=== PATIENT | female | born 1995 | race Caucasian/White ===

== ENCOUNTER 2021-02-03 05:50 | Inpatient (IN) | payer OTHER, SELFPAY ==
[2021-02-03] VITALS (98 sets, daily range): BP systolic 92–135; BP diastolic 34–77; PULSE 67–141; RESP 16; TEMP 36.6–37.2; O2SAT 96–100; BMI 35.1
--- NOTE | 2021-02-03 05:41 | PM.IMHP ---
H&P: HPI History of Present Illness Date/Time: 02/03/21 05:41 26-year-old woman whose last menstrual period was 04/08/2020, EDC is 02/10/2021, presents at 39 weeks gestation for induction of labor. is uncomplicated. Early ultrasound confirmed dates Chief Complaint: iol Review of Systems Review of Systems: All systems reviewed & are unremarkable except as noted in HPI and below PMFSH Family History Family History Father Mitral valve prolapse Mother Arthritis, rheumatoid Social History Social History Substance use: never Spiritual care concerns: No Meds Home Medications and Allergies Home Medications Medication Instructions Recorded Confirmed Type prenat.vits,fernanda,cyo-[id number]-[id number] 1 tablet PO DAILY 01/15/21 01/15/21 History [ #2] sertraline 100 mg PO DAILY 01/15/21 01/15/21 History Allergies Allergy/AdvReac Type Severity Reaction Status Date / Time No Known Allergies Allergy Verified 01/15/21 12:39 Exam Const: General: no acute distress Eyes: General: appearance normal, both eyes and all related structures Neck: Neck: supple and no JVD Thyroid: thyroid normal Resp: Effort & Inspection: normal respiratory effort Auscultation: clear to auscultation bilaterally Cardio: Rate: regular rate Rhythm: regular rhythm GI: Inspection: non-distended GI Palp: Yes Soft to palpation, No Tenderness to palpation present (GI) and No Guarding due to palpation present (GI) Auscultation: normal bowel sounds : External Female Exam: normal external appearance Speculum Exam - Vagina: normal appearance of the vagina Speculum Exam - Cervix: Cervical os closed ( cervix 2.5) Skin: General skin exam: no rashes or lesions noted Extrem: General: normal to inspection and no edema Psych: Mental Status: mental status grossly normal Affect: normal affect Assessment and Plan Additional Plan impression: Term with favorable cervix Plan: Medical induction of labor. Spontaneous vaginal delivery is expected. She is an epidural candidate
[2021-02-03 06:37] LABS: Basophils Percent Auto 0.3 % (0.2-1.2); Eosinophils Absolute Auto 0.1 K/mm3 (0-0.3); Hematocrit 25.8 % (37.0-47.0); Hemoglobin 7.9 g/dL (12.0-15.0); Immature Granulocyte Absolute 0.29 K/mm3 (0.00-0.031); Immature Granulocyte Percent A 2.2 % (0-0.5); Lymphocytes Absolute Auto 1.88 K/mm3 (0.9-3.2); Mean Corpuscular HGB Conc 30.6 g/dl (32-36); Mean Corpuscular Hemoglobin 23.7 pg (26-34); Mean Corpuscular Volume 77.5 fl (80-100); Monocytes Absolute Auto 0.8 K/mm3 (0.1-0.6); Monocytes Percent Auto 6.3 % (2.6-8.5); Neutrophils Absolute Auto 10.2 K/mm3 (1.3-6.7); Neutrophils Percent Auto 76.2 % (45.5-73.1); Platelet Count Result 195 k/mm3 (150-375); Red Blood Count 3.33 M/mm3 (4.2-5.4); Red Cell Distribution Width 16.4 % (11.5-14.5); White Blood Count 13.4 K/mm3 (4.5-10.0)
[2021-02-03] MEDS: LACTATED RINGERS 1,000 ML 125 ML IV CONT ×2 (06:39→09:00)
[2021-02-03] MEDS: AMPICILLIN 2 GM/NS 100 ML 2 GM/100 ML BAG IVPB (06:40)
[2021-02-03] MEDS: OXYTOCIN 30 UNITS/NS 500 ML 30 UNITS/500 ML BAG IV CONT (06:40)
--- NOTE | 2021-02-03 06:42 | LDADM ---
This patient, Karon Bray, was admitted to Labor/Delivery/Recovery 103 on 02/03/21 at 05:50. Plans for labor, pain management and were discussed with patient. Patient/family oriented to hospital policies and general routines including ID bracelet, bed and alarms, visiting hours, pain management, procedures, bathroom and other care routines, personal items, smoking policy, room service/diet and guest tray routines, security routines, and visiting hours. Patient/Family are encouraged to report perceived risks to care and to ask questions if they do not understand what they are told or what they should do. See OBIX for further documentation.
--- NOTE | 2021-02-03 07:11 | WPDANESEPP ---
Anes - Eval Pre Procedure Procedure: labor epidural Date/Time: 02/03/21 07:11 Preop Diagnosis: labor pain Pre Op Diagnosis: IOL Patient Data Age: 26 Gender: F Height: 5 ft 3 in Weight: 90 kg Last Vital Signs Pulse 99 02/03/21 06:45 BP 120/74 02/03/21 06:45 Allergies Allergy/AdvReac Type Severity Reaction Status Date / Time No Known Allergies Allergy Verified 01/15/21 12:39 Home Medications Medication Instructions Recorded Confirmed Type prenat.vits,fernanda,tnx-pvsg-[id number] 1 tablet PO DAILY 01/15/21 02/03/21 History [ #2] sertraline 100 mg PO DAILY 01/15/21 02/03/21 History Laboratory Tests 02/03/21 02/03/21 06:17 06:17 WBC 13.4 K/mm3 H K/mm3 (4.5-10.0) RBC 3.33 M/mm3 L M/mm3 (4.2-5.4) Hgb 7.9 g/dL L g/dL (12.0-15.0) Hct 25.8 % L % (37.0-47.0) MCV 77.5 fl L fl (80-100) MCH 23.7 pg L pg (26-34) MCHC 30.6 g/dl L g/dl (32-36) RDW 16.4 % H % (11.5-14.5) Plt Count 195 k/mm3 k/mm3 (150-375) MPV 10.0 fl fl (7.4-10.4) Immature Gran % (Auto) 2.2 % H % (0-0.5) Neut % (Auto) 76.2 % H % (45.5-73.1) Lymph % (Auto) 14.0 % L % (18.3-44.2) [place] % (Auto) 6.3 % % (2.6-8.5) Eos % (Auto) 1.0 % % (0-4.4) Baso % (Auto) 0.3 % % (0.2-1.2) Lymph # (Auto) 1.88 K/mm3 K/mm3 (0.9-3.2) [place] # (Auto) 0.8 K/mm3 H K/mm3 (0.1-0.6) Eos # (Auto) 0.1 K/mm3 K/mm3 (0-0.3) Baso # (Auto) 0.0 K/mm3 K/mm3 (0.0-0.1) Abs Immat Gran (auto) 0.29 K/mm3 H K/mm3 (0.00-0.031) Absolute Neuts (auto) 10.2 K/mm3 H K/mm3 (1.3-6.7) Absolute Nucleated RBC 0.0 K/mm3 K/mm3 (0.0-0.012) Nucleated RBC % 0.0 % % (0.0-0.2) RPR Pending Patient hx anesthesia problems: none Family hx anesthesia problems: none [facility], [facility] Family History Family History Father Mitral valve prolapse Mother Arthritis, rheumatoid Social History Social History Smoking status: Never smoker Substance use: never Spiritual care concerns: No Exam Day of Procedure 02/03/21 07:11
[2021-02-03] MEDS: AMPICILLIN 1 GM/NS 50 ML 1 GM/50 ML BAG IVPB (10:46)
--- NOTE | 2021-02-03 11:13 | PM.OBPNVD ---
OB - PN: Subj Subjective Date/time seen: 02/03/21 11:13 cx 4 by rn exam iupc/epidural in mec present/fhts ok OB - PN: Obj Data Labs CBC & Chem 7: 02/03/21 06:17 Labs: Laboratory Results - last 24 hr 02/03/21 02/03/21 06:17 06:17 WBC 13.4 H RBC 3.33 L Hgb 7.9 L Hct 25.8 L MCV 77.5 L MCH 23.7 L MCHC 30.6 L RDW 16.4 H Plt Count 195 MPV 10.0 Immature Gran % (Auto) 2.2 H Neut % (Auto) 76.2 H Lymph % (Auto) 14.0 L [place] % (Auto) 6.3 Eos % (Auto) 1.0 Baso % (Auto) 0.3 Lymph # (Auto) 1.88 [place] # (Auto) 0.8 H Eos # (Auto) 0.1 Baso # (Auto) 0.0 Abs Immat Gran (auto) 0.29 H Absolute Neuts (auto) 10.2 H Absolute Nucleated RBC 0.0 Nucleated RBC % 0.0 Blood Type O Positive Antibody Screen Negative OB - PN A/P Time Spent With Patient Time: Total time spent is greater than 50% in coordination of care (as documented) at patient's floor/unit and/or counseling patient:
[2021-02-03 12:01] LABS: Rapid Plasma Reagin Non-Reactive (NonReactive)
--- NOTE | 2021-02-03 14:54 | PM.OBPRVD ---
OB - Delivery Note Procedure Delivery date: 02/03/21 Induction method: AROM Delivery augmentation: pitocin Delivery monitor: external FHT Route of delivery: Episiotomy description: None Laceration Description: None Specimen: No Quantitative Blood Loss (ml): 58 Anesthesia type: Epidural Disposition: floor [place] Baby Date of : 02/03/21 Time of : 14:48 Weeks of gestation at delivery: 39 gender: Female presentation: vertex position: Right Occiput Anterior Placenta delivery description: Spontaneous cord vessel description: 3 Vessels and Nuchal Cord score one minute: 7 score five minutes: 9
[2021-02-03] MEDS: OXYTOCIN 30 UNITS/NS 500 ML 30 UNITS/500 ML BAG 125 UNITS IV CONT (15:18)
[2021-02-03] MEDS: ACETAMINOPHEN 325 MG TABLET 650 MG PO (15:29)
[2021-02-03] MEDS: BENZOCAINE 20% AER SPR (*SP) 56 GM CAN 1 SPRAY TOPICAL (15:29)
[2021-02-03] MEDS: WITCH HAZEL 40 PADS 1 PAD TOPICAL (15:29)
--- NOTE | 2021-02-03 18:54 | OBPPTRN ---
[id number] Patient transferred to post room #278 via W/C. Support person present. Oriented to unit, room, information board, rooming in, admission packet and security measures. Patient verbalizes understanding.
[2021-02-03] MEDS: IBUPROFEN 600 MG TABLET PO (20:31)
[2021-02-04 04:00] VITALS: BP 105/67; PULSE 68; RESP 16; TEMP 36.8
[2021-02-04 05:38] LABS: Hematocrit 23.9 % (37.0-47.0); Hemoglobin 7.3 g/dL (12.0-15.0)
--- NOTE | 2021-02-04 06:43 | PC.NURSE ---
1700 dose of FeSo4 not given by RN on 02/03/21
--- NOTE | 2021-02-04 07:40 | WPDANLDPN2 ---
Anes-Prog Note L&D Date/Time: 02/04/21 07:40 Comfortable throughout: labor and delivery Neuraxial method: epidural Epidural/Spinal procedure site: clean & non-tender Neuro status: Neuro function grossly intact. Cardiovascular status: normal Respiratory status: normal Airway patency: baseline Mental status: baseline Post-Op hydration status: normal Vital Signs: Last Vital Signs Temp 36.8 C 02/04/21 04:00 Pulse 68 02/04/21 04:00 Resp 16 02/04/21 04:00 BP 105/67 02/04/21 04:00 Pulse Ox 100 02/03/21 22:45 Pain score (VAS): 3 I/O: Intake & Output 02/03/21 02/03/21 02/04/21 15:59 23:59 07:59 Intake Total 2550 Output Total 65 Balance 2550 -65 Post-procedural complaints: none Patient feedback: Patient satisfied with anesthetic care.
--- NOTE | 2021-02-04 07:42 | P.DS_ITS ---
DS: Admitting Diagnosis Admitting Diagnosis Admitting Diagnosis: term iup/gbs DS: Summary Hospital Course Hospital Course: The patient was admitted for induction of labor. She was treated for group B strep prophylaxis. Her hospital course was unremarkable following spontaneous vaginal delivery. She was voiding without difficulty, passing gas, ambulating, and generally without Time Spent with Patient Time attestation: Total time spent providing and/or coordinating discharge services: Exam Const: General: no acute distress Eyes: General: appearance normal, both eyes and all related structures Neck: Neck: supple and no JVD Thyroid: thyroid normal Resp: Effort & Inspection: normal respiratory effort Auscultation: clear to auscultation bilaterally Cardio: Rate: regular rate Rhythm: regular rhythm GI: Inspection: non-distended GI Palp: Yes Soft to palpation, No Tenderness to palpation present (GI) and No Guarding due to palpation present (GI) Auscultation: normal bowel sounds : General: Yes bladder normal to palpation External Female Exam: normal external appearance Speculum Exam - Vagina: normal vaginal discharge and No vaginal bleeding Speculum Exam - Cervix: nontender Bimanual exam- vagina & uterus: bladder normal to palpation and No Cervical tenderness present OB/external & speculum: No vaginal bleeding Skin: General skin exam: no rashes or lesions noted Extrem: General: normal to inspection and no edema Psych: Mental Status: mental status grossly normal Affect: normal affect DS: Data Data Completed and Pending Labs on day of discharge: Labs from last 24 hours 02/04/21 02/03/21 02/03/21 04:41 06:17 06:17 Hgb 7.3 L Hct 23.9 L RPR Non-reactive Blood Type O Positive Antibody Screen Negative Discharge Plan Discharge Attending physician on discharge: Herman Farrell Discharging Clinician: Herman Farrell Patient Disposition: Home, Self-Care Activity: may shower, no straining and pelvic rest Diet: heart healthy Patient Instructions: Antibiotic Form Stand Alone Forms: General Discharge Information Follow-up/Referrals: Herman Farrell MD [Physician] - Discharge Medications: Continued sertraline 100 mg Tablet 100 mg PO DAILY RF: 0 #2 Tablet 1 tablet PO DAILY RF: 0 Date of admission: 02/03/21 05:50 Primary Care Provider: PHYSICIAN,DIRECTOR OF SCIENTIFIC RESEARCH Admitting Provider: Herman Farrell Attending physician on admission: Herman Farrell Condition: Stable
--- NOTE | 2021-02-04 07:42 | P.PNOB_ITS ---
OB - PN: Subj Subjective Date/time seen: 02/04/21 07:42 Patient comments: no complaints and pain well controlled baby status: doing well and nursing well OB - PN: Obj Data Labs CBC & Chem 7: 02/04/21 04:41 Labs: Laboratory Results - last 24 hr 02/03/21 02/03/21 02/04/21 06:17 06:17 04:41 Hgb 7.3 L Hct 23.9 L RPR Non-reactive Blood Type O Positive Antibody Screen Negative OB - PN A/P Plan day: 1 Plan: routine care, discharge home and follow up 6 weeks Time Spent With Patient Time: Total time spent is greater than 50% in coordination of care (as doc umented) at patient's floor/unit and/or counseling patient: Time with patient: less than 15 minutes Review of Systems Review of Systems: All systems reviewed & are unremarkable except as noted in HPI and below Exam Const: General: no acute distress Eyes: General: appearance normal, both eyes and all related structures Neck: Neck: supple and no JVD Thyroid: thyroid normal Resp: Effort & Inspection: normal respiratory effort Auscultation: clear to auscultation bilaterally Cardio: Rate: regular rate Rhythm: regular rhythm GI: Inspection: non-distended GI Palp: Yes Soft to palpation, No Tenderness to palpation present (GI) and No Guarding due to palpation present (GI) Auscultation: normal bowel sounds : General: Yes bladder normal to palpation External Female Exam: normal external appearance Speculum Exam - Vagina: normal vaginal discharge and No vaginal bleeding Speculum Exam - Cervix: nontender Bimanual exam- vagina & uterus: bladder normal to palpation and No Cervical tenderness present OB/external & speculum: No vaginal bleeding Skin: General skin exam: no rashes or lesions noted Extrem: General: normal to inspection and no edema Psych: Mental Status: mental status grossly normal Affect: normal affect
[2021-02-04 08:10] VITALS: BP 123/78; PULSE 75; RESP 16; TEMP 36.5; O2SAT 100
[2021-02-04] MEDS: DOCUSATE SODIUM 100 MG CAPSULE PO (09:26)
[2021-02-04] MEDS: POLYSACCHARIDE IRON COMPLEX 150 MG CAPSULE PO (09:26)
[2021-02-04] MEDS: IBUPROFEN 600 MG TABLET PO (09:27)
[2021-02-04] MEDS: MULTIVIT/MIN/PREN/FOL AC/IRON TABLET 1 TAB PO (09:27)
[2021-02-04 12:01] VITALS: BP 115/63; PULSE 80; RESP 17; TEMP 36.6; O2SAT 95
[2021-02-04] MEDS: ACETAMINOPHEN 325 MG TABLET 650 MG PO (15:01)
--- NOTE | 2021-02-04 16:05 | PC.NURSE ---
Patient instructed on viewing the discharge video Mother & Baby Care, The First Two Weeks . Patient was given the opportunity and encouraged to ask questions. Patient verbalized understanding of information shared and has been given the mother/baby guide for home reference.
[2021-02-05 09:38] VITALS: BP 127/87; PULSE 88; RESP 20; TEMP 36.6; O2SAT 100
== END 2021-02-04 16:30 | disposition home or self-care (01) | DRG 807 ==
LOC: ANHLDR 05:57 → ANHOB2 17:29
PROVIDERS: Admitting Provider Obstetrics & Gynecology; Visit Provider Obstetrics & Gynecology
DX: O99.824 Streptococcus B carrier state complicating childbirth (principal); Z37.0 Single live birth; Z3A.39 39 weeks gestation of pregnancy; O69.81X0 Labor and delivery complicated by cord around neck, without compression, not applicable or unspecified
CPT/HCPCS: 36415; 85014; 85018; 85025; 86592; 86850; 86900; 86901; A9270; J0290; J2590; J2795; J7120

== ENCOUNTER 2023-03-10 09:39 | Emergency (ER) | payer BC, SELFPAY ==
[2023-03-10 09:51] VITALS: BP 119/69; PULSE 94; RESP 16; TEMP 36.7; O2SAT 98
--- NOTE | 2023-03-10 11:33 | ED.ANIMALBIT ---
HPI - Animal Bite General Chief Complaint: Animal Bite Stated Complaint: spider bites Time Seen by Provider: 03/10/23 10:44 Source: patient Mode of arrival: ambulatory Limitations: no limitations History of Present Illness HPI narrative: This is a 28-year-old female who presents to the ED with chief complaint of a spider bite occurring last night. Patient states that she had a bite to the lower lip and right lateral thigh. Patient states there is pain in the thigh and minimal pain in the lip. Reports a burning and tingling in the right thigh. Denies fevers, chills, nausea, vomiting, spreading redness or warmth. Related Data Home Medications Medication Instructions Recorded Confirmed prenat.vits,fernanda,[id number] 1 tablet PO DAILY 01/15/21 02/03/21 sertraline 100 mg tablet 100 mg PO DAILY 01/15/21 02/03/21 Allergies Allergy/AdvReac Type Severity Reaction Status Date / Time No Known Allergies Allergy Verified 03/10/23 11:28 Review of Systems Review of Systems: CONSTITUTIONAL: Denies fever, chills, or sweats. SKIN: See HPI MUSCULOSKELETAL: Denies back pain, joint pain, or myalgia. NEUROLOGIC: Denies headache, numbness, dizziness, or weakness. PSYCHIATRIC: Denies anxiety or depression. [facility] Family History Family History Father Mitral valve prolapse Mother Arthritis, rheumatoid Social History Social History (System 01/21/22 @ 12:40 by Cynthia Wright) Smoking status: Never smoker Substance use: never Spiritual care concerns: No Exam Narrative: GENERAL: Well-appearing, well-nourished, and in no acute distress. EXTREMITIES: Normal range of motion. No edema. SKIN: Bite chelsie lesion to the right lateral thigh with surrounding raised skin. No erythema, warmth or fluctuance. No induration. No drainage. Mild swelling to the left lower lip. Bite chelsie to the exterior lip just below the border. Again no swelling or drainage or warmth. NEURO: Alert and oriented x3. No focal deficits. PSYCH: Normal mood and affect. Course Vital Signs Vital signs: Vital Signs Temperature 98.1 F 03/10/23 09:51 Pulse Rate 94 03/10/23 09:51 Respiratory Rate 16 03/10/23 09:51 Blood Pressure 119/69 03/10/23 09:51 Pulse Oximetry 98 03/10/23 09:51 Oxygen Delivery Room Air 03/10/23 09:51 Temperature 98.1 F 03/10/23 09:51 Pulse Rate 101 H 03/10/23 11:48 Respiratory Rate 16 03/10/23 11:48 Blood Pressure 119/69 03/10/23 09:51 Pulse Oximetry 98 03/10/23 11:48 Oxygen Delivery Room Air 03/10/23 09:51 MDM - Animal Bite MDM Narrative Medical decision making narrative: This is a 28-year-old female who presents to the ED with chief complaint of spider bites to the leg and lip. Patient brings in what seems to be a brown recluse spider in a plastic bag. Her vitals are stable. Afebrile. The exam is reassuring with no surrounding redness, drainage or necrotic skin. She is 20 weeks . Bactroban ointment applied on the leg. Given instructions for monitoring the wounds. Strict return precautions given. She is stable for discharge. Other supportive measures for home discussed. Advised that she follow-up with her OB or PCP. Patient is understanding and agreeable to plan for discharge and follow-up. Discharge Plan Discharge Clinical Impression: Brown recluse spider bite Qualifiers: Encounter type: initial encounter Patient Disposition: Home, Self-Care Condition: Stable Instructions: Antibiotic Form Additional Instructions: Symptoms are consistent with a brown recluse bite. Please follow-up with your OB or family doctor to make sure this is getting better. If you have any new or worsening symptoms like spreading redness, uncontrollable pain or skin darkness please return to the ER for further evaluation. Please use topical antibiotics on the thigh. Please continue to clean areas with soapy water
[2023-03-10] MEDS: MUPIROCIN 2% OINT 22 GM TUBE 1 APPLIC TOPICAL (11:41)
[2023-03-10 11:48] VITALS: PULSE 101; RESP 16; O2SAT 98
== END 2023-03-10 11:49 | disposition home or self-care (01) ==
PROVIDERS: Emergency Provider Physician Assistant; PCP Obstetrics & Gynecology
DX: O9A.212 Injury, poisoning and certain other consequences of external causes complicating pregnancy, second trimester (principal); T63.331A Toxic effect of venom of brown recluse spider, accidental (unintentional), initial encounter; Z3A.20 20 weeks gestation of pregnancy
CPT/HCPCS: 99283; A9270

== ENCOUNTER 2023-06-02 13:02 | Observation (INO) | payer BC, SELFPAY ==
--- NOTE | ~2023-06-02 | US_ITS ---
EXAMINATION: US OB BPP multi gestation DATE: 06/02/2023 18:18 INDICATION: Decreased movement during third trimester twin gestation TECHNIQUE: Real-time ultrasound of the pelvis was performed. COMPARISON: None. FINDINGS: There are two living fetuses. The placenta(s) is/are fundal/of the right for baby A and fundal for ba by B. The amniotic fluid volume is 11.2 cm for baby A and 10.5 cm for baby B which is normal (normal range: 8.6 cm to 24.2 cm) . Fetus A: Presentation is vertex. heart rate is 150 beats per minute (bpm). Biophysical profile performed by the technologist: breathing (30 sec sustained breathing in 30 minutes): 2 out of 2 movement (3 gross body movements in 30 minutes): 2 out of 2 tone (one episode of tbbvbhg-rjjxogsve-hbhryhm limb movement): 2 out of 2 Amniotic fluid pocket (2 cm): 2 out of 2 Total score: 8 out of 8 Fetus B: Presentation is transverse with head to the maternal left. heart rate is 151 bpm. Biophysical profile performed by the technologist: breathing (30 sec sustained breathing in 30 minutes): 2 out of 2 movement (3 gross body movements in 30 minutes): 2 out of 2 tone (one episode of hjkwflf-ennixprdg-zbgggvp limb movement): 2 out of 2 Amniotic fluid pocket (2 cm): 2 out of 2 Total score: 8 out of 8 IMPRESSION: 1. Living twin fetuses. 2. Normal placenta(s). 3. Biophysical profile 8 out of 8 for fetus A and 8 out of 8 for fetus B. 4. Normal amniotic fluid indices. Reviewed, dictated and finalized at location F.
--- NOTE | 2023-06-02 13:20 | PC.NURSE ---
When pt originally arrived, she c/o decreased movement, but when she got into her room she added that she has had increased nausea for the last 2 weeks and has been unable to keep any food or liquids down for the last 3 days and has also had diarrhea after food for the last 3 days. Denies anyone else at home being sick.
--- NOTE | 2023-06-02 13:40 | PC.NURSE ---
Dr. Fabio Mandujano informed of pt's arrival and symptoms. Informed FHT's present on both twins. Order received for IV fluids and Zofran. Pt changed to observation status and moved to room 115 with personal belongings for her to be able to lay in a bed.
[2023-06-02] MEDS: DEXTROSE 5%/LACTATED RINGERS 1,000 ML 999 ML IV CONT (14:09)
--- NOTE | 2023-06-02 14:10 | PC.NURSE ---
Unable to trace FHT's individually since changing rooms despite trying. Requested another nurse come try. IV fluids started and Zofran given.
[2023-06-02] MEDS: ONDANSETRON INJ 4 MG/2 ML VIAL IV PUSH (14:11)
[2023-06-02 14:16] VITALS: BP 113/71; PULSE 82
[2023-06-02 14:30] VITALS: BP 114/66; PULSE 82
[2023-06-02 14:46] VITALS: BP 112/72; PULSE 74
--- NOTE | 2023-06-02 14:50 | PC.NURSE ---
Dr. Fabio Mandujano informed FHR monitor appears to be tracing the same except for a couple of instances where one of the baby's FHR has accelerated and only then are 2 separate HR's tracing. Requested to do BPP's on baby's to confirm well being after IV fluids are in. OK to order.
[2023-06-02 15:01] VITALS: BP 111/67; PULSE 83
--- NOTE | 2023-06-02 15:10 | PC.NURSE ---
Nausea is better. Pt given applesauce, anil crackers and water.
[2023-06-02 15:16] VITALS: BP 116/66; PULSE 81; RESP 20; TEMP 36.9
--- NOTE | 2023-06-02 15:16 | OBADM ---
This patient, Karon Bray, admitted to the OB room 115 for observation. Patient/family oriented to hospital policies and general routines including ID bracelet, bed and alarms, visiting hours, pain management, procedures, bathroom and other care routines, personal items, smoking policy, room service/diet, and visiting hours. Patient/Family are encouraged to report perceived risks to care and to ask questions if they do not understand what they are told or what they should do.
[2023-06-02 16:01] VITALS: BP 118/72; PULSE 84
--- NOTE | 2023-06-02 16:43 | PC.NURSE ---
Still unable to trace both babies on monitor- discontinued. Waiting for U/S to be able to take pt. Additional applesauce, crackers, and water given. Pt has not had any diarrhea. Nausea much better.
--- NOTE | 2023-06-02 17:50 | PC.NURSE ---
Pt back from U/S, both twins scored 8/8 on BPP's.
--- NOTE | 2023-06-06 07:53 | PM.OBTRLD ---
OB - Triage/Final Diagnosis Visit Information Reason for evaluation: threatened labor Comments/Additional reasons for admission: I have assessed the risk for this patient, Karon Bray, and determined that she would benefit from observation care.
== END 2023-06-02 18:45 | disposition home or self-care (01) ==
LOC: ANHOBPP 18:41 → ANHLDR 19:17
PROVIDERS: Admitting Provider Obstetrics & Gynecology; Visit Provider Obstetrics & Gynecology
DX: O47.03 False labor before 37 completed weeks of gestation, third trimester (principal); O36.8130 Decreased fetal movements, third trimester, not applicable or unspecified; O30.003 Twin pregnancy, unspecified number of placenta and unspecified number of amniotic sacs, third trimester; Z3A.32 32 weeks gestation of pregnancy
CPT/HCPCS: 76819; 96361; 96374; G0378; G0379; J2405; J7121

== ENCOUNTER 2023-06-23 12:46 | Outpatient (CLI) | payer BC, SELFPAY ==
[2023-06-23 13:31] VITALS: BP 120/64; PULSE 92
--- NOTE | 2023-06-23 13:56 | PM.OBTRLD ---
OB - Triage/Final Diagnosis Visit Information Reason for evaluation: threatened labor and other (twins) Comments/Additional reasons for admission: I have assessed the risk for this patient, Karon Bray, and determined that she would benefit from observation care. Evaluation Vital signs: Vital Signs - 24 hr 06/23/23 13:31 Pulse Rate 92 Blood Pressure 120/64
== END 2023-06-23 13:45 | disposition home or self-care (01) ==
LOC: ANHOBOP 12:54 → ANHOBPP 12:56
PROVIDERS: Visit Provider Obstetrics & Gynecology
DX: O47.9 False labor, unspecified (principal); O30.009 Twin pregnancy, unspecified number of placenta and unspecified number of amniotic sacs, unspecified trimester
CPT/HCPCS: 59025; 84112; 99199

== ENCOUNTER 2023-07-06 11:50 | Outpatient (RCR) | payer BC, SELFPAY ==
[2023-05-08 18:06] VITALS: BP 115/72; PULSE 102
[2023-06-07 12:46] VITALS: BP 118/65; PULSE 87
[2023-06-07 13:01] VITALS: BP 112/64; PULSE 86
[2023-06-07 13:16] VITALS: BP 111/63; PULSE 85
[2023-06-07 13:43] VITALS: BP 118/65; PULSE 72
[2023-06-20 13:40] VITALS: BP 119/75; PULSE 95
[2023-06-26 16:03] VITALS: BP 114/74; PULSE 87
[2023-07-06 12:45] VITALS: BP 128/72; PULSE 86
== END 2023-08-06 23:59 | disposition home or self-care (01) ==
LOC: ANHOBOP 11:50
PROVIDERS: Visit Provider Obstetrics & Gynecology
DX: O36.8130 Decreased fetal movements, third trimester, not applicable or unspecified (principal); Z3A.29 29 weeks gestation of pregnancy; Z3A.32 32 weeks gestation of pregnancy; Z3A.33 33 weeks gestation of pregnancy; Z3A.34 34 weeks gestation of pregnancy; Z3A.35 35 weeks gestation of pregnancy; Z3A.36 36 weeks gestation of pregnancy
CPT/HCPCS: 59025

== ENCOUNTER 2023-07-09 19:00 | Inpatient (IN) | payer BC, SELFPAY ==
[2023-07-09 20:44] VITALS: BMI 40.3
--- NOTE | 2023-07-09 20:45 | LDADM ---
This patient, Karon Bray, was admitted to Labor/Delivery/Recovery 102 on 07/09/23 at 19:00. Plans for labor, pain management and were discussed with patient. Patient/family oriented to hospital policies and general routines including ID bracelet, bed and alarms, visiting hours, pain management, procedures, bathroom and other care routines, personal items, smoking policy, room service/diet and guest tray routines, security routines, and visiting hours. Patient/Family are encouraged to report perceived risks to care and to ask questions if they do not understand what they are told or what they should do. See OBIX for further documentation.
[2023-07-09 20:46] VITALS: RESP 15; TEMP 36.7
[2023-07-09 21:15] LABS: Basophils Percent Auto 0.2 % (0.2-1.2); Eosinophils Absolute Auto 0.2 K/mm3 (0-0.3); Eosinophils Percent Auto 1.6 % (0-4.4); Hematocrit 28.2 % (37.0-47.0); Hemoglobin 8.5 g/dL (12.0-15.0); Immature Granulocyte Absolute 0.29 K/mm3 (0.00-0.031); Immature Granulocyte Percent A 2.4 % (0-0.5); Lymphocytes Absolute Auto 2.02 K/mm3 (0.9-3.2); Lymphocytes Percent Auto 16.5 % (18.3-44.2); Mean Corpuscular HGB Conc 30.1 g/dl (32-36); Mean Corpuscular Hemoglobin 23.5 pg (26-34); Mean Corpuscular Volume 78.1 fl (80-100); Mean Platelet Volume 11.1 fl (7.4-10.4); Monocytes Absolute Auto 1.2 K/mm3 (0.1-0.6); Monocytes Percent Auto 9.4 % (2.6-8.5); Neutrophils Absolute Auto 8.5 K/mm3 (1.3-6.7); Neutrophils Percent Auto 69.9 % (45.5-73.1); Nucleated Red Blood Cells Absolute Auto 0.1 K/mm3 (0.0-0.012); Nucleated Red Blood Cells Perc 0.4 % (0.0-0.2); Platelet Count Result 189 k/mm3 (150-375); Red Blood Count 3.61 M/mm3 (4.2-5.4); White Blood Count 12.2 K/mm3 (4.5-10.0)
[2023-07-09 22:28] VITALS: RESP 16; TEMP 36.8
[2023-07-10] VITALS (117 sets, daily range): BP systolic 75–158; BP diastolic 43–106; PULSE 61–122; RESP 15–20; TEMP 36.4–36.8; O2SAT 93–100
[2023-07-10] MEDS: LACTATED RINGERS 1,000 ML 125 ML IV CONT ×2 (06:19→07:24)
[2023-07-10] MEDS: OXYTOCIN 30 UNITS/NS 500 ML 30 UNITS/500 ML BAG IV CONT (06:19)
--- NOTE | 2023-07-10 06:40 | PM.IMHP ---
H&P: HPI History of Present Illness Date/Time: 07/10/23 06:40 Chief Complaint: Labor Narrative: a 20-year-old 3 para 2 last menstrual period is unknown. EDC is 07/24/2023 with twins, confirmed by 10 week ultrasound presents at 38 weeks gestation in early labor post previous vertex. Cervix is 5cm. Negative for group B strep PMFSH Family History Family History Father Mitral valve prolapse Mother Arthritis, rheumatoid Social History Social History Smoking status: Never smoker Substance use: never Lack of Transportation: No Lack of Food: Never True Current Housing: I Have Housing Concerned About Future Housing: No Difficulty Paying Gas/Electric Bills: No Difficulty Paying for Meds: No Currently Unemployed: No Education: High School Diploma/GED Difficulty w/ Childcare or Family Care: No Spiritual care concerns: No Meds Home Medications and Allergies Home Medications Medication Instructions Recorded Confirmed Type ferrous sulfate 325 mg (65 mg 325 mg PO DAILY 05/08/23 07/09/23 History iron) tablet vit no.95-ferrous 1 tablet PO DAILY 05/08/23 07/09/23 History fumarate 28 mg-folic acid 800 mcg tablet () sertraline 50 mg tablet 50 mg PO DAILY 06/02/23 07/09/23 History Allergies Allergy/AdvReac Type Severity Reaction Status Date / Time No Known Allergies Allergy Verified 06/26/23 13:17 Vital Signs Vital Signs - 24 hr 07/09/23 20:44 07/10/23 00:10 07/10/23 00:41 Temperature 98.1 F Pulse Rate 80 Respiratory Rate 15 Blood Pressure 112/66 Oxygen Delivery Room Air 07/09/23 22:28 07/09/23 20:46 07/10/23 02:25 Temperature 98.3 F 98.1 F 98.3 F Pulse Rate 74 Respiratory Rate 16 15 17 Blood Pressure 143/91 H Oxygen Delivery 07/10/23 05:32 07/10/23 05:35 07/10/23 06:01 Temperature Pulse Rate 86 85 82 Respiratory Rate Blood Pressure 143/89 H 137/82 138/84 Oxygen Delivery 07/10/23 06:16 07/10/23 06:31 Temperature Pulse Rate 89 85 Respiratory Rate Blood Pressure 127/83 131/86 Oxygen Delivery Exam Const: General: cooperative, healthy appearing and comfortable Nutritional Appearance: average body habitus Orientation/consciousness: oriented to person, oriented to place and oriented to time HENMT: Head: normal to inspection ( gravid soft uterus) Resp: Effort & Inspection: normal respiratory effort Cardio: Rate: regular rate Rhythm: regular rhythm Heart sounds: S1 normal heart sound present and S2 normal heart sound present GI: Inspection: normal to inspection ( gravid soft uterus) : Speculum Exam - Cervix: normal appearance of the cervix ( 90/2. AROM clear fluid FHTs were reassuring x2) H&P: Results Labs Labs: Short CBC 07/09/23 Range/Units 21:01 WBC 12.2 H (4.5-10.0) K/mm3 Hgb 8.5 L (12.0-15.0) g/dL Hct 28.2 L (37.0-47.0) % Plt Count 189 (150-375) k/mm3 Assessment and Plan Assessment and plan (1) Term : Code(s): Z34.90 - Encounter for supervision of normal , unspecified, unspecified trimester Status: Acute (2) Twin : Code(s): O30.009 - Twin , unspecified number of placenta and unspecified number of amniotic sacs, unspecified trimester Status: Acute Plan spontaneous vaginal delivery is expected. Double setup undertaken. She has an epidural candidate
--- NOTE | 2023-07-10 07:25 | WPDANESEPPF ---
Anes - Initial Pre Proc Eval Procedure: Labor Epidural Date/Time: 07/10/23 07:25 Surgeon: Herman Mandujano MD Pre Op Diagnosis: Labor Pain Pre Op Diagnosis: Labor Patient Data Age: 28 Gender: F Height: 1.57 m Weight: 100 kg Last Vital Signs Temp 36.7 C 07/10/23 06:37 Pulse 89 07/10/23 07:16 Resp 17 07/10/23 02:25 BP 135/80 07/10/23 07:16 O2 Del Method Room Air 07/09/23 20:44 Allergies Allergy/AdvReac Type Severity Reaction Status Date / Time No Known Allergies Allergy Verified 06/26/23 13:17 Home Medications Medication Instructions Recorded Confirmed Type ferrous sulfate 325 mg (65 mg 325 mg PO DAILY 05/08/23 07/09/23 History iron) tablet vit no.95-ferrous 1 tablet PO DAILY 05/08/23 07/09/23 History fumarate 28 mg-folic acid 800 mcg tablet () sertraline 50 mg tablet 50 mg PO DAILY 06/02/23 07/09/23 History Laboratory Tests 07/09/23 21:01 WBC 12.2 H K/mm3 (4.5-10.0) RBC 3.61 L M/mm3 (4.2-5.4) Hgb 8.5 L g/dL (12.0-15.0) Hct 28.2 L % (37.0-47.0) MCV 78.1 L fl (80-100) MCH 23.5 L pg (26-34) MCHC 30.1 L g/dl (32-36) RDW 18.0 H % (11.5-14.5) Plt Count 189 k/mm3 (150-375) MPV 11.1 H fl (7.4-10.4) Immature Gran % (Auto) 2.4 H % (0-0.5) Neut % (Auto) 69.9 % (45.5-73.1) Lymph % (Auto) 16.5 L % (18.3-44.2) Glascock % (Auto) 9.4 H % (2.6-8.5) Eos % (Auto) 1.6 % (0-4.4) Baso % (Auto) 0.2 % (0.2-1.2) Lymph # (Auto) 2.02 K/mm3 (0.9-3.2) Glascock # (Auto) 1.2 H K/mm3 (0.1-0.6) Eos # (Auto) 0.2 K/mm3 (0-0.3) Baso # (Auto) 0.0 K/mm3 (0.0-0.1) Abs Immat Gran (auto) 0.29 H K/mm3 (0.00-0.031) Absolute Neuts (auto) 8.5 H K/mm3 (1.3-6.7) Absolute Nucleated RBC 0.1 H K/mm3 (0.0-0.012) Nucleated RBC % 0.4 H % (0.0-0.2) RPR Pending Blood Type O Positive Antibody Screen Negative Patient hx anesthesia problems: none Family hx anesthesia problems: none Results Review: All pre-operative results and documents have been reviewed as part of the pre-operative evaluation. [facility] Family History Family History Father Mitral valve prolapse Mother Arthritis, rheumatoid Social History Social History Smoking status: Never smoker Substance use: never Lack of Transportation: No Lack of Food: Never True Current Housing: I Have Housing Concerned About Future Housing: No Difficulty Paying Gas/Electric Bills: No Difficulty Paying for Meds: No Currently Unemployed: No Education: High School Diploma/GED Difficulty w/ Childcare or Family Care: No Spiritual care concerns: No Anes - Eval Final PreProcedure Day of Procedure 07/10/23 07:25 Results Review: All pre-operative results and documents have been reviewed as part of the pre-operative evaluation. Informed Consent: The patient's anesthetic plan and its attendant risks and benefits were discussed with the patient/family/POA. Questions were solicited and answers provided to the satisfaction of the patient/family/POA.
[2023-07-10] MEDS: PHENYLEPHRINE 1,000 MCG/10 ML SYRINGE 100 MCG IV PUSH (08:08)
--- NOTE | 2023-07-10 13:01 | P.PCNOB_ITS ---
OB - Delivery Note Procedure Delivery date: 07/10/23 Events: Other (twins) Induction method: None Delivery augmentation: Rupture of Membranes and Pitocin Delivery monitor: External FHT Route of delivery: Episiotomy description: None Laceration Description: None Quantitative Blood Loss (ml): 160 Anesthesia type: Epidural Disposition: Floor [place] Baby Date of : 07/10/23 Weeks of gestation at delivery: 38 Infant gender: Female Weight (pounds): 6 Weight (ounces): 11 presentation: vertex position: Right Occiput Anterior Placenta delivery description: Spontaneous Cord Vessel Description: 3 Vessels, Nuchal Cord and Loose score one minute: 9 score five minutes: 9 Twins 2: Date of : 07/10/23 Weeks of gestation at delivery: 38 Infant gender: Female presentation: vertex position: Right Occiput Anterior Placental delivery description: Spontaneous Cord Vessel Description: 3 Vessels score one minute: 8 score five minutes: 9
[2023-07-10] MEDS: OXYTOCIN 30 UNITS/NS 500 ML 30 UNITS/500 ML BAG 125 UNITS IV CONT (13:19)
[2023-07-10] MEDS: ACETAMINOPHEN 325 MG TABLET 650 MG PO (13:26)
[2023-07-10] MEDS: BENZOCAINE 20% AER SPR (*SP) 56 GM CAN 1 SPRAY TOPICAL (15:07)
[2023-07-10] MEDS: WITCH HAZEL 40 PADS 1 PAD TOPICAL (15:07)
[2023-07-10 15:31] LABS: Rapid Plasma Reagin Non-Reactive (NonReactive)
[2023-07-10] MEDS: DOCUSATE SODIUM 100 MG CAPSULE PO (17:45)
[2023-07-10] MEDS: IBUPROFEN 600 MG TABLET PO (17:45)
[2023-07-10] MEDS: POLYSACCHARIDE IRON COMPLEX 150 MG CAPSULE PO (17:45)
--- NOTE | 2023-07-10 19:19 | OBPPTRN ---
1536 Patient transferred to post room #277 via W/C. Support person present. Oriented to unit, room, information board, rooming in, admission packet and security measures. Patient verbalizes understanding.
[2023-07-11] MEDS: IBUPROFEN 600 MG TABLET PO ×4 (01:33→23:35)
[2023-07-11] MEDS: ACETAMINOPHEN 325 MG TABLET 650 MG PO (01:34)
[2023-07-11 04:45] VITALS: BP 138/88; PULSE 67; RESP 16; TEMP 36.5; O2SAT 100
[2023-07-11 05:29] LABS: Hemoglobin 7.4 g/dL (12.0-15.0)
--- NOTE | 2023-07-11 07:10 | PM.DS ---
DS: Admitting Diagnosis Discharge Date 07/11/23 Admitting Diagnosis twin at term DS: Discharge Diagnosis Discharge Diagnosis (1) Twin : Code(s): O30.009 - Twin , unspecified number of placenta and unspecified number of amniotic sacs, unspecified trimester Status: Acute (2) Term : Code(s): Z34.90 - Encounter for supervision of normal , unspecified, unspecified trimester Status: Acute DS: Summary Hospital Course Reason for hospitalization: patient was admitted in active labor Hospital Course: patient underwent spontaneous vaginal delivery of twins on 07/10/2023. Her hospital course unremarkable. She remained afebrile. She was up, voiding without difficulty, ambulating, breast-feeding, generally without complaints. Time Spent with Patient Time attestation: Total time spent providing and/or coordinating discharge services: Exam Const: General: cooperative, healthy appearing, comfortable and well groomed Orientation/consciousness: oriented to person, oriented to place and oriented to time HENMT: Head: normal to inspection Resp: Effort & Inspection: normal respiratory effort Cardio: Rate: regular rate Rhythm: regular rhythm Heart sounds: S1 normal heart sound present and S2 normal heart sound present GI: Inspection: normal to inspection and incision ( clean dry and intact) DS: Data Data Completed and Pending Labs on day of discharge: Labs from last 24 hours 07/11/23 07/09/23 04:56 21:01 Hgb 7.4 L Hct 25.0 L RPR Non-reactive Discharge Plan Discharge Attending physician on discharge: Herman Almaguer Discharging Clinician: Herman Almaguer Patient Disposition: Home, Self-Care Activity: may shower and pelvic rest Diet: heart healthy Wound Care Instructions: follow printed instructions Patient Instructions: Antibiotic Form Stand Alone Forms: General Discharge Information Follow-up/Referrals: Herman Almaguer MD [Physician] - Discharge Medications: New hydrocodone-acetaminophen 5-325 mg tablet 1 tablet PO Q4H PRN (Reason: pain) Qty: 10 0RF Continued ferrous sulfate 325 mg (65 mg iron) Tablet 325 mg PO DAILY PNV cmb#95-ferrous fumarate-FA [] 28 mg iron- 800 mcg Tablet 1 tablet PO DAILY sertraline 50 mg tablet 50 mg PO DAILY Date of admission: 07/09/23 19:00 Primary Care Provider: PHYSICIAN,MAIL DELIVERY SUPERVISOR Admitting Provider: Herman Almaguer Attending physician on admission: Herman Almaguer Condition: Stable
--- NOTE | 2023-07-11 07:14 | PM.OBPNVD ---
OB - PN: Subj Subjective Date/time seen: 07/11/23 07:14 Patient comments: no complaints and pain well controlled baby status: doing well and nursing well OB - PN: Obj Data Labs 07/11/23 04:56 Labs: Laboratory Results - last 24 hr 07/09/23 07/11/23 21:01 04:56 Hgb 7.4 L Hct 25.0 L RPR Non-reactive OB - PN A/P Plan day: 1 Plan: routine care Comments: begin iron supplementation Time Spent With Patient Time: Total time spent is greater than 50% in coordination of care (as documented) at patient's floor/unit and/or counseling patient: Time with patient: less than 15 minutes Exam Const: General: cooperative, healthy appearing and comfortable Nutritional Appearance: average body habitus Orientation/consciousness: oriented to person, oriented to place and oriented to time HENMT: Head: normal to inspection Resp: Effort & Inspection: normal respiratory effort Cardio: Rate: regular rate Rhythm: regular rhythm Heart sounds: S1 normal heart sound present and S2 normal heart sound present GI: Inspection: normal to inspection
--- NOTE | 2023-07-11 07:53 | WPDANLDPN2 ---
Anes-Prog Note L&D Date/Time: 07/11/23 07:53 Comfortable throughout: labor and delivery Neuraxial method: epidural Epidural/Spinal procedure site: clean & non-tender Neuro status: Neuro function grossly intact. Cardiovascular status: normal Respiratory status: normal Airway patency: baseline Mental status: baseline Post-Op hydration status: normal Vital Signs: Last Vital Signs Temp 36.5 C 07/11/23 04:45 Pulse 67 07/11/23 04:45 Resp 16 07/11/23 04:45 BP 138/88 07/11/23 04:45 Pulse Ox 100 07/11/23 04:45 O2 Del Method Room Air 07/10/23 15:36 Pain score (VAS): 0 I/O: Intake & Output 07/10/23 07/10/23 07/11/23 15:59 23:59 07:59 Intake Total 800 Output Total 230 Balance 570 Post-procedural complaints: none Patient feedback: Patient satisfied with anesthetic care.
[2023-07-11 08:00] VITALS: BP 123/83; PULSE 92; RESP 16; TEMP 37.3; O2SAT 100
[2023-07-11] MEDS: HYDROcodone/acetaminophen (*CRX) 5-325 MG TABLET 1 TAB PO ×4 (08:11→23:33)
[2023-07-11] MEDS: DOCUSATE SODIUM 100 MG CAPSULE PO ×2 (08:11→17:58)
[2023-07-11] MEDS: POLYSACCHARIDE IRON COMPLEX 150 MG CAPSULE PO ×2 (08:11→17:58)
[2023-07-11] MEDS: MULTIVIT/MIN/PREN/FOL AC/IRON TABLET 1 TAB PO (09:00)
--- NOTE | 2023-07-11 09:49 | PC.NURSE ---
[id number] Introductions were made, then consulted with patient to assess needs related to . Mother led the conversation with her?plans to feed?her infant and the?experience so far. Mother works well with her infants with encouragement and education. Encouraged understanding of the benefits of skin to skin (demonstrating unwrapping and placing upright on her chest), stimulating with massage touch, changing positions to encourage wakefulness, how to watch for early feeding cues, responsive feeding, feeding on demand (aiming for 8-12 times in 24 hours, about every 2-3 hours), milk production, hand expression, finger feeding colostrum, building/maintaining a milk supply, duration of feeding, signs of adequate intake/output and how to record on the feeding sheet. Reviewed how to stimulate with changing positioning of the infant and with mother in a laid-back position, being finger fed colostrum began to show feeding instincts to look for the breast. Casandra Analytical Chemistry Teacher came in and began the assessment. Mother voiced understanding of skin to skin, stimulating with massage touch, responsive feedings, hand expressed colostrum, talking to infant to encourage on demand if it has been 1-2.5 hours since the start of the last , to call if infant does not latch, or if there is discomfort with . Resources provided for inpatient with name written on the communication board. Parents voiced understanding of information, demonstrated learning and will call if there is a request for assistance.
--- NOTE | 2023-07-11 10:10 | PC.NURSE ---
1000 -[id number] Consulted with patient after being called to the room for assistance. Mother is demonstrating cradle holding with twin B belly facing the ceiling. Reviewed positioning and alignment, supporting breast, off-centered (asymmetrical latch) and leading with the chin with big, open, wide gape. latched optimally to the right breast in cross cradle position. Education given to mother of how to visualize suck/swallow ratios and listen for drinking at the breast. Infant was able to maintain latch without discomfort to mother. Nipple care reviewed with optimal latch, good positioning and using clean hands when feeding her and touching her breast. Resources used to facilitate learning were used from the mom and baby guide. Mother voiced understanding of the education shared, to call for assistance if the infant does not latch or if there is discomfort with .
[2023-07-11] MEDS: TETANUS,DIPHTHERIA,AC PERTUSSIS ADULT (0.5 ML) BOOSTRIX IM (15:06)
[2023-07-11 19:40] VITALS: BP 143/95; PULSE 88; RESP 16; TEMP 36.8; O2SAT 100
[2023-07-12] MEDS: HYDROcodone/acetaminophen (*CRX) 5-325 MG TABLET 1 TAB PO ×2 (05:27→12:10)
[2023-07-12] MEDS: IBUPROFEN 600 MG TABLET PO ×2 (05:28→12:12)
[2023-07-12 07:02] VITALS: BP 129/78; PULSE 82; RESP 16; TEMP 36.7; O2SAT 98
--- NOTE | 2023-07-12 08:06 | PC.NURSE ---
On 07/12/23, the student, Manjula Gimenez, provided care and completed [facility] documentation on this patient. I have reviewed the student's documentation and agree with the findings.
--- NOTE | 2023-07-12 09:05 | PC.NURSE ---
Patient viewed the discharge video Mother & Baby Care, The First Two Weeks . Patient was given the opportunity and encouraged to ask questions. Patient verbalized understanding of information shared and has been given the mother/baby guide for home reference.
[2023-07-12] MEDS: MULTIVIT/MIN/PREN/FOL AC/IRON TABLET 1 TAB PO (09:44)
[2023-07-12] MEDS: POLYSACCHARIDE IRON COMPLEX 150 MG CAPSULE PO (09:45)
[2023-07-12] MEDS: DOCUSATE SODIUM 100 MG CAPSULE PO (09:46)
--- NOTE | 2023-07-12 12:17 | PC.NURSE ---
[id number] Mother led the conversation with her experience and plan to feed her infant so far and her ability to independently latch infants optimally without discomfort. Mother is feeding appropriately for growth of infants and understands stimulating infants to eat if needed. Infants has had appropriate feedings in the last 24 hours meets the outcomes for weight, output and jaundice at this time. Mother states she is confident to continue effectively her infants at home, when to call for assistance and denies any additional assistance or education at this time. Reinforced parents of the contact information for services and when to call the doctor on the feeding sheet and mom/baby guide as added resources. Mother voiced understanding of the education shared. Pt is a relative of the Primary RN that also lives across the street for additional resource. Primary RN is present.
[2023-07-14 10:16] VITALS: BP 137/88; PULSE 74; RESP 18; TEMP 36.7; O2SAT 100
== END 2023-07-12 13:36 | disposition home or self-care (01) | DRG 807 ==
LOC: ANHLDR 20:41 → ANHOB2 07-10 15:55
PROVIDERS: Admitting Provider Obstetrics & Gynecology; Visit Provider Obstetrics & Gynecology
DX: O30.003 Twin pregnancy, unspecified number of placenta and unspecified number of amniotic sacs, third trimester (principal); Z37.2 Twins, both liveborn; Z3A.38 38 weeks gestation of pregnancy; O69.81X1 Labor and delivery complicated by cord around neck, without compression, fetus 1
CPT/HCPCS: 36415; 85014; 85018; 85025; 86592; 86850; 86900; 86901; 90715; A9270; J2371; J2590; J2795; J7120

== ENCOUNTER 2023-09-01 05:17 | Day surgery (SDC) | payer BC, SELFPAY ==
[2023-08-28 15:12] VITALS: BMI 32.5
--- NOTE | 2023-08-28 15:22 | PC.NURSE ---
Report to the Outpatient Waiting Room, entrance under the green pavilion located off [facility], at 0600 on 09/01/23. Planned Procedure Time: 0730. Time changes happen often and if your time is changed the preop area will call you the afternoon before. - You and your visitor will be asked to self-screen and do not enter if you have any COVID symptoms. - A mask is optional within the hospital at this time. Patients may have clear liquids (water, carbonated beverages, clear teas, apple juice) until 3 hours prior to surgery with a maximum of 20 ounces. - No food from midnight until time of surgery Take the following medications with a SIP of water the morning of surgery: none DO NOT STOP ANY OF YOUR OTHER PRESCRIPTION MEDICATIONS PRIOR TO SURGERY ?EXCEPT THE FOLLOWING Medications to discontinue per physician Multivitamins Date to take last dose 3 days prior Please no make-up, nail pitcairn islander, hairspray, perfume, deodorant, or body powder the day of surgery. No jewelry (including any body piercings) or valuables the day of surgery, leave them at home. Please take a shower or bath the night before, or the morning of, surgery with an antibacterial soap. Wear comfortable, loose fitting clothing. - Jewelry must be removed prior to entering the operating room. Rings and piercings that are not removed may be cut off. - The hospital will not accept responsibility for valuables. - Please leave all valuables, including medications, at home the day of surgery. If you are going home after surgery, a licensed electric pile driver operator must drive you home. - NO public transportation without another adult if you receive anesthesia. - We recommend that an adult stay with you for 24 hours following discharge. - We also recommend that you do not drive, make important decision, drink alcoholic beverages, or take any drugs that were not prescribed by your health care provider for at least 24 hours after your discharge time. Follow any additional instructions given to you from your surgeon. If you or anyone in your household have experienced Covid symptoms in the past week, please notify your surgeon or the nurse liaison at the phone number below for possible testing. Telephone instructions given to patient and asked if any additional questions and then verbalized understanding. Patient advised to call surgeon office or pre surgery nurse liaison [phone] if any additional questions.
--- NOTE | 2023-08-29 07:36 | PM.IMHP ---
H&P: HPI History of Present Illness Date/Time: 08/29/23 07:36 Chief Complaint: Desires sterilization Narrative: This is a 28-year-old multiparous patient admitted for permanent sterilization via laparoscopic tubal ligation with rings. She understands this to be a permanent and irreversible procedure. She understands the failure rate to be 3 and a 1000 with a subsequent risk of ectopic bleeding and . Risks and benefits the procedure itself were reviewed including but not exclusive of , aspiration pneumonia, bleeding, transfusion, perforation injury to bowel, bladder, ureters, or any internal organs with need for open laparotomy. She received the [employer] handout entitled sterilization for men and women. She had all questions answered. She asked to proceed PMFSH Family History Family History Father Mitral valve prolapse Mother Arthritis, rheumatoid Social History Social History Smoking status: Never smoker Second hand tobacco smoke exposure: No Alcohol intake: never Substance use: former Other substance usage details: weed, couple times in Lack of Transportation: No Lack of Food: Never True Current Housing: I Have Housing Concerned About Future Housing: No Difficulty Paying Gas/Electric Bills: No Difficulty Paying for Meds: No Currently Unemployed: No Education: High School Diploma/GED Difficulty w/ Childcare or Family Care: No Living arrangements: with family Spiritual care concerns: No Meds Home Medications and Allergies Home Medications Medication Instructions Recorded Confirmed Type ferrous sulfate 325 mg (65 mg 325 mg PO DAILY 05/08/23 08/28/23 History iron) tablet sertraline 50 mg tablet 50 mg PO HS 06/02/23 08/28/23 History multivitamin with minerals-folic 1 tablet PO DAILY 08/28/23 08/28/23 History acid 120 mcg chewable tablet (Adult Multivitamin Gummies) Allergies Allergy/AdvReac Type Severity Reaction Status Date / Time No Known Allergies Allergy Verified 08/28/23 15:08 Exam Const: General: cooperative, healthy appearing, comfortable and average body habitus Orientation/consciousness: oriented to person, oriented to place and oriented to time HENMT: Head: normal to inspection Resp: Effort & Inspection: normal respiratory effort Cardio: Rate: regular rate Rhythm: regular rhythm Heart sounds: S1 normal heart sound present and S2 normal heart sound present GI: Inspection: normal to inspection : External Female Exam: normal external appearance Speculum Exam - Vagina: normal appearance of the vagina Speculum Exam - Cervix: normal appearance of the cervix Bimanual exam- vagina & uterus: uterine shape normal Bimanual Exam- Adnexa, other: normal adnexae Assessment and Plan Assessment and plan (1) Sterilization: Code(s): Z30.2 - Encounter for sterilization Status: Acute Plan Laparoscopic bilateral tubal ligation
[2023-09-01] VITALS (11 sets, daily range): BP systolic 108–153; BP diastolic 64–99; PULSE 78–93; RESP 12–24; TEMP 36.3; O2SAT 92–100; BMI 32.8
--- NOTE | 2023-09-01 06:30 | WPDHPUPDATE1 ---
History and Physical Update Update Date/Time: 09/01/23 06:30 History and Physical has been reviewed, including an updated exam of the patient. There are NO changes in the patient's condition. Risks, benefits, and alternatives have been discussed and questions answered. Patient agrees to proceed with procedure.
[2023-09-01] MEDS: LACTATED RINGERS 1,000 ML 30 ML IV CONT ×2 (06:55→08:42)
[2023-09-01] MEDS: ACETAMINOPHEN 500 MG TABLET 1000 MG PO (07:03)
[2023-09-01] MEDS: KETOROLAC 15 MG/ML VIAL (*BKC) IV PUSH ×2 (07:03→08:55)
--- NOTE | 2023-09-01 07:13 | WPDANESEPPF ---
Anes - Initial Pre Proc Eval Procedure: Operation Date: 09/01/23 07:30 Proposed Procedures p Laparoscopic Bilateral Tubal Sterilization with Fallopian Rings - Herman Mandujano MD Date/Time: 09/01/23 07:13 Surgeon: Herman Mandujano MD Pre Op Diagnosis: Desire Sterilization Patient Data Age: 28 Gender: F Height: 1.6 m Weight: 83.46 kg Allergies Allergy/AdvReac Type Severity Reaction Status Date / Time No Known Allergies Allergy Verified 08/28/23 15:08 Home Medications Medication Instructions Recorded Confirmed Type ferrous sulfate 325 mg (65 mg 325 mg PO DAILY 05/08/23 08/28/23 History iron) tablet sertraline 50 mg tablet 50 mg PO HS 06/02/23 08/28/23 History multivitamin with minerals-folic 1 tablet PO DAILY 08/28/23 08/28/23 History acid 120 mcg chewable tablet (Adult Multivitamin Gummies) hydrocodone 5 mg-acetaminophen 325 1 tablet PO Q4H PRN pain #20 tabs 09/01/23 Rx mg tablet Laboratory Tests 09/01/23 06:58 Hgb Pending Hct Pending Patient hx anesthesia problems: none Family hx anesthesia problems: none Results Review: All pre-operative results and documents have been reviewed as part of the pre-operative evaluation. [facility] Family History Family History Father Mitral valve prolapse Mother Arthritis, rheumatoid Social History Social History Smoking status: Never smoker Second hand tobacco smoke exposure: No Alcohol intake: never Substance use: former Other substance usage details: weed, couple times in HS Lack of Transportation: No Lack of Food: Never True Current Housing: I Have Housing Concerned About Future Housing: No Difficulty Paying Gas/Electric Bills: No Difficulty Paying for Meds: No Currently Unemployed: No Education: High School Diploma/GED Difficulty w/ Childcare or Family Care: No Living arrangements: with family Spiritual care concerns: No Anes - Eval Final PreProcedure Day of Procedure 09/01/23 07:13 Patient weight: obese Heart: regular rate and rhythm Lungs: clear to auscultation Airway: Mallampati scale class II Neurological: alert and oriented Last oral intake: >/= 8 hours ASA classification: II Emergent: no Anesthetic plan: proceed Anesthesia type and monitoring: general ETT and standard monitoring Results Review: All pre-operative results and documents have been reviewed as part of the pre-operative evaluation. Informed Consent: The patient's anesthetic plan and its attendant risks and benefits were discussed with the patient/family/POA. Questions were solicited and answers provided to the satisfaction of the patient/family/POA.
[2023-09-01 07:14] LABS: Hematocrit 34.4 % (37.0-47.0); Hemoglobin 10.4 g/dL (12.0-15.0)
--- NOTE | 2023-09-01 07:55 | P.OP_ITS ---
Procedure Note - Detailed Date of Procedure 09/01/23 Pre-op Diagnosis Desire Sterilization Post-op Diagnosis Same Procedure Performed Prescribed bilateral tubal ligation with rings Surgeon Herman Mandujano MD Anesthesia General Indications A 28-year-old multiparous female who desires permanent irreversible st erilization Findings Normal-appearing uterus ovaries and tubes. Normal-appearing gallbladder appendix. Description of Procedure Patient was prepped draped normal sterile fashion placed in dorsal lithotomy position. Trach anesthesia weighted speculum placed posterior fornix vagina. Anterior lip of cervix grasped with a single-tooth tenaculum. Parker's cannula inserted the cervix and attached to the single-tooth. This was used later for uterine manipulation the bladder was emptied of a large amount clear urine. The weighted speculum was removed the gloves were changed. A supraumbilical incision made the Veress needle passed in the abdomen. Abdomen filled with CO2 gas to 15mm Hg. 5mm trocar advanced under direct visualization assuring no injury. Patient placed in Trendelenburg and a suprapubic incision made. The 8 trocar advanced under direct visualization assuring no injury. The left fallopian tube was grasped a good knuckle of tube formed with a fallopian tube rings photo documentation undertaken. In like fashion the opposite tube was grasped and a good knuckle of tube formed with excellent blanching. Photo documentation was undertaken remainder the pelvis appeared within normal limits appendix and liver and gallbladder were photographed. The instruments removed the gas was removed. The incisions closed with 4 Monocryl and glue. Patient went to recovery in satisfactory condition. All sponge, needle, instrument counts were correct. There were no immediate complications Estimated Blood Loss 5 Drains No Packing No Pathology None sent Complications No immediate complications Condition Stable Disposition PACU
[2023-09-01] MEDS: fentaNYL CITRATE INJ (*CRX) 100 MCG/2 ML VIAL 25 MCG IV PUSH ×8 (08:25→09:25)
[2023-09-01] MEDS: oxyCODONE HCL (*CRX) 5 MG TAB IR PO (10:10)
== END 2023-09-01 10:46 | disposition home or self-care (01) ==
PROVIDERS: Anesthesiology; Visit Provider Obstetrics & Gynecology
PROC: (CPT 58671; principal; 2023-09-01 07:30)
DX: Z30.2 Encounter for sterilization (principal); E66.9 Obesity, unspecified; Z68.32 Body mass index [BMI] 32.0-32.9, adult
CPT/HCPCS: 58671; 36415; 85014; 85018; A4264; A9270; J0330; J1100; J1885; J2250; J2405; J2704; J3010; J7120

== ENCOUNTER 2024-03-07 19:12 | Emergency (ER) | payer BC, SELFPAY ==
--- NOTE | ~2024-03-07 | XR_ITS ---
EXAMINATION: XR chest 2V DATE: 03/07/2024 20:46 INDICATION: Bodyaches TECHNIQUE: frontal and lateral views of the chest were obtained. COMPARISON: None FINDINGS: The lungs are clear with no focal airspace opacities, pulmonary edema, pleural effusion or pneumothor ax. The cardiomediastinal silhouette is normal. Visualized bones and soft tissues are unremarkable. IMPRESSION: 1. No acute cardiopulmonary disease. Reviewed, dictated and finalized at location A.
--- NOTE | ~2024-03-07 | CT_ITS ---
EXAMINATION: CT brain wo con DATE: 03/07/2024 20:40 INDICATION: Headache TECHNIQUE: Computed tomography (CT) of the head was performed without intravenous contrast. Sagittal and coronal reconstructions were performed. The mA was adjusted according to patient size. Iterative reconstruction technique was employed. The dose-length product was 605.33 mGy-cm. COMPARISON: None FINDINGS: No acute intracranial hemorrhage, acute infarction or abnormal extra axial fluid collection. Ventricl es are normal and symmetric. No mass/mass effect. Mild mucosal thickening the bilateral ethmoid sinus es. The orbits and mastoid air cells are normal. IMPRESSION: 1. Normal brain. No acute intracranial process. Reviewed, dictated and finalized at location A.
[2024-03-07 19:16] VITALS: BP 107/70; PULSE 100; RESP 20; TEMP 36.6; O2SAT 97
[2024-03-07 19:51] VITALS: BP 115/76; PULSE 94; RESP 16; O2SAT 97
--- NOTE | 2024-03-07 19:53 | ECG_ITS ---
SEE SCANNED COPY FOR CONFIRMED REPORT MTDD
[2024-03-07 20:17] LABS: Basophils Percent Auto 0.3 % (0.2-1.2); Eosinophils Absolute Auto 0.1 K/mm3 (0-0.3); Eosinophils Percent Auto 0.6 % (0-4.4); Hematocrit 40.9 % (37.0-47.0); Hemoglobin 13.5 g/dL (12.0-15.0); Immature Granulocyte Absolute 0.03 K/mm3 (0.00-0.031); Immature Granulocyte Percent A 0.3 % (0-0.5); Lymphocytes Absolute Auto 2.01 K/mm3 (0.9-3.2); Mean Corpuscular Volume 84.7 fl (80-100); Mean Platelet Volume 10.5 fl (7.4-10.4); Monocytes Percent Auto 8.1 % (2.6-8.5); Neutrophils Absolute Auto 8.7 K/mm3 (1.3-6.7); Neutrophils Percent Auto 73.7 % (45.5-73.1); Platelet Count Result 330 k/mm3 (150-375); Red Blood Count 4.83 M/mm3 (4.2-5.4); Red Cell Distribution Width 15.9 % (11.5-14.5); White Blood Count 11.8 K/mm3 (4.5-10.0)
[2024-03-07 20:27] LABS: Appearance Urine Cloudy (Clear); Bacteria Urine Rare /hpf; Bilirubin Urine Negative (Negative); Blood Urine Negative (Negative); Color Urine Yellow (Yellow); Glucose Urine UA Negative (Negative); Ketones Urine Trace mg/dL (Negative); Leukocyte Esterase Ur 1+ LEU/UL (Negative); Nitrate Urine Negative (Negative); Non Pathogenic Casts 0-2; Protein Urine Trace mg/dL (Negative); RBC Urine 0-2 /hpf (0-2); Squamous Epithelial Cell Urine Many /hpf (Few)
[2024-03-07 20:27] LABS: Alanine Aminotransferase 16 U/L (6-35); Albumin Level 4.7 g/dL (3.5-5.1); Alkaline Phosphatase 106 U/L (38-126); Anion Gap 10 mmol/L (4-12); Aspartate Amino Transferase 21 U/L (14-36); Bilirubin,Total 0.4 mg/dL (0.2-1.3); Blood Urea Nitrogen 6 mg/dL (7-17); Calcium 9.5 mg/dL (8.4-10.2); Carbon Dioxide 25 mmol/L (22-30); Chloride 103 mmol/L (98-107); Estimated CRCL calculation 122 ml/min; Estimated Glomerular Filt Rate > 60; Glucose 101 mg/dL (65-110); Potassium 3.7 mmol/L (3.4-5.0); Sodium 138 mmol/L (137-145)
[2024-03-07 20:28] LABS: INR 1.1; Prothrombin Time 14.6 Seconds (11.1-14.7)
[2024-03-07 20:28] LABS: Add Urine Microscopic? YES
--- NOTE | 2024-03-07 20:30 | ED.GENADULT ---
HPI - General Adult General Chief complaint: Altered Mental Status Stated complaint: bodyaches Time Seen by Provider: 03/07/24 20:16 History of Present Illness HPI narrative: Pt had wisdome teeth removed 3 weeks ago and got dry socket and has been on pcn and says her tooth and jaw have finally stopped hurting but now she has developed nausea and vomiting and feels very lightheaded and has had intermittent CP and body aches and numbness and tingling in fingers. Related Data Home Medications Medication Instructions Recorded Confirmed multivitamin with minerals-folic 1 tablet PO DAILY 08/28/23 03/05/24 acid 120 mcg chewable tablet (Adult Multivitamin Gummies) Allergies Allergy/AdvReac Type Severity Reaction Status Date / Time No Known Allergies Allergy Verified 03/05/24 12:55 Review of Systems Review of Systems: All systems reviewed & are unremarkable except as noted in HPI and below PMFSH Past Medical History Medical History (Updated 03/07/24 @ 21:47 by Fadi Capone III, DO) Sterilization Family History Family History (Updated 03/05/24 @ 13:01 by Tori Sanchez CMA) Father Mitral valve prolapse Mother Arthritis, rheumatoid Social History Social History (Updated 03/05/24 @ 13:03 by Tori Sanchez CMA) Smoking status: Never smoker Second hand tobacco smoke exposure: No Alcohol intake: never Substance use: former Other substance usage details: weed, couple times in HS Lack of Transportation: No Lack of Food: Never True Current Housing: I Have Housing Concerned About Future Housing: No Difficulty Paying Gas/Electric Bills: No Difficulty Paying for Meds: No Currently Unemployed: No Education: Trade/Vocational Certificate Difficulty w/ Childcare or Family Care: No Living arrangements: with family Spiritual care concerns: No Exam Const: General: healthy appearing and no acute distress Nutritional Appearance: well nourished Orientation/consciousness: patient oriented x3 Limitations: no limitations HENMT: Head: normal to inspection Mouth: Yes Normal oral and palatal mucosa present Teeth and gingiva: dentition normal Throat: posterior oropharynx normal Eyes: EOM: EOMs intact bilaterally Neck: Neck: normal visual inspection Chest: Chest palpation & inspection: normal inspection of the chest Resp: Effort & Inspection: normal respiratory effort Auscultation: clear to auscultation bilaterally Cardio: Rate: regular rate Rhythm: regular rhythm GI: GI Palp: Yes Soft to palpation Auscultation: normal bowel sounds Skin: General skin exam: normal color Rashes: no rashes Wounds: no wounds Neuro: General: patient oriented x3 and no focal motor deficits Cranial nerves: Yes Nystagmus not present Speech: normal speech Extrem: General: normal to inspection and no clubbing, cyanosis or edema Psych: Mental Status: mental status grossly normal Affect: normal affect Attitude: cooperative Course Vital Signs Vital signs: Vital Signs Temperature 97.9 F 03/07/24 19:16 Pulse Rate 100 03/07/24 19:16 Respiratory Rate 20 03/07/24 19:16 Blood Pressure 107/70 03/07/24 19:16 Pulse Oximetry 97 03/07/24 19:16 Oxygen Delivery Room Air 03/07/24 19:16 Temperature 97.9 F 03/07/24 19:16 Pulse Rate 94 03/07/24 19:51 Respiratory Rate 16 03/07/24 19:51 Blood Pressure 115/76 03/07/24 19:51 Pulse Oximetry 97 03/07/24 19:51 Oxygen Delivery Room Air 03/07/24 19:51 Medical Decision Making MDM Narrative Medical decision making narrative: pt has numerous complaints with CARMONA and dizziness and nausea and vomiting. will swab for covid and flu and give IV fluids and zofran and CT head. Pt has some history of panic and anxiety as well. swabs neg, slight wbc elevation and likely contaminated urine but has bact and wbc so will treat with macrobid. cxr neg head CT neg. Pt feels better after zofran toradol and IV flui
[2024-03-07 20:53] LABS: Influenza A QL RT-PCR Negative (Negative); Influenza B QL RT-PCR Negative (Negative); RSV RNA, RT-PCR Negative (Negative); SARS-CoV-2 RNA PCR Negative (Negative)
[2024-03-07] MEDS: KETOROLAC 15 MG/ML VIAL (*BKC) IV PUSH (21:31)
[2024-03-07] MEDS: ONDANSETRON INJ 4 MG/2 ML VIAL IV PUSH (21:31)
[2024-03-07] MEDS: SODIUM CHLORIDE 0.9% IV 1,000 ML 999 ML IV CONT (21:32)
[2024-03-07 22:27] VITALS: BP 108/73; PULSE 85; RESP 20; O2SAT 97
[2024-03-07] MEDS: NITROFURANTOIN MONOHYD MACROCR 100 MG CAP PO (22:27)
== END 2024-03-07 22:33 | disposition home or self-care (01) ==
PROVIDERS: Emergency Medicine; Emergency Provider Emergency Medicine
DX: N39.0 Urinary tract infection, site not specified (principal); Z20.822 Contact with and (suspected) exposure to COVID-19
CPT/HCPCS: 36415; 70450; 71046; 80053; 81001; 81025; 85025; 85610; 85730; 87086; 87088; 87637; 93005; 96361; 96374; 96375; 99284; A9270; J1885; J2405; J7030

== ENCOUNTER 2025-01-16 11:05 | Outpatient (CLI) | payer BC, SELFPAY ==
[2025-01-16 14:37] LABS: Alanine Aminotransferase 15 U/L (6-35); Albumin Level 4.5 g/dL (3.5-5.1); Alkaline Phosphatase 76 U/L (38-126); Anion Gap 11 mmol/L (4-12); Aspartate Amino Transferase 44 U/L (14-36); Bilirubin,Total 0.3 mg/dL (0.2-1.3); Blood Urea Nitrogen 10 mg/dL (7-17); Calcium 9.3 mg/dL (8.4-10.2); Carbon Dioxide 27 mmol/L (22-30); Chloride 103 mmol/L (98-107); Estimated Glomerular Filt Rate > 60; Glucose 83 mg/dL (65-110); Potassium 4.4 mmol/L (3.4-5.0); Sodium 141 mmol/L (137-145)
[2025-01-16 14:40] LABS: Basophils Percent Auto 0.6 % (0.2-1.2); Eosinophils Absolute Auto 0.2 K/mm3 (0-0.3); Eosinophils Percent Auto 3.2 % (0-4.4); Hemoglobin 14.4 g/dL (12.0-15.0); Immature Granulocyte Absolute 0.02 K/mm3 (0.00-0.031); Immature Granulocyte Percent A 0.3 % (0-0.5); Lymphocytes Absolute Auto 2.66 K/mm3 (0.9-3.2); Lymphocytes Percent Auto 37.1 % (18.3-44.2); Mean Corpuscular HGB Conc 32.7 g/dl (32-36); Mean Corpuscular Hemoglobin 29.8 pg (26-34); Mean Corpuscular Volume 90.9 fl (80-100); Mean Platelet Volume 11.4 fl (7.4-10.4); Monocytes Absolute Auto 0.7 K/mm3 (0.1-0.6); Monocytes Percent Auto 10.2 % (2.6-8.5); Neutrophils Absolute Auto 3.5 K/mm3 (1.3-6.7); Neutrophils Percent Auto 48.6 % (45.5-73.1); Platelet Count Result 309 k/mm3 (150-375); Red Blood Count 4.84 M/mm3 (4.2-5.4); Red Cell Distribution Width 13.3 % (11.5-14.5); White Blood Count 7.2 K/mm3 (4.5-10.0)
[2025-01-16 15:59] LABS: Iron 80 ug/dL (37-170)
[2025-01-16 16:12] LABS: Percent Iron Saturation 24 % (20-50)
[2025-01-16 16:24] LABS: Thyroid Stimulating Hormone Reflex 0.841 uIU/mL (0.465-4.68)
== END 2025-01-16 11:06 | disposition home or self-care (01) ==
LOC: ANHGOSHLAB 11:06
PROVIDERS: PCP Clinical Nurse Specialist; Visit Provider Clinical Nurse Specialist
DX: Z13.228 Encounter for screening for other metabolic disorders (principal); Z13.220 Encounter for screening for lipoid disorders; D50.9 Iron deficiency anemia, unspecified; F41.9 Anxiety disorder, unspecified; R74.8 Abnormal levels of other serum enzymes; E55.9 Vitamin D deficiency, unspecified
CPT/HCPCS: 36415; 80053; 82306; 82728; 83540; 83550; 84443; 85025

== ENCOUNTER 2025-08-01 09:06 | Outpatient (CLI) | payer BC, SELFPAY ==
[2025-08-01 14:17] LABS: Beta HCG Quantitative < 2.39 mIU/ML
[2025-08-01 14:21] LABS: Thyroid Stimulating Hormone Reflex 0.646 uIU/mL (0.465-4.68)
[2025-08-02 07:09] LABS: FSH 3.1 mIU/mL (.)
[2025-08-05 18:08] LABS: Free Testosterone (Direct) 0.5 pg/mL (0.0-4.2)
== END 2025-08-01 09:07 | disposition home or self-care (01) ==
LOC: ANHGOSHLAB 09:08
PROVIDERS: PCP Clinical Nurse Specialist; Visit Provider Obstetrics & Gynecology
DX: N91.5 Oligomenorrhea, unspecified (principal); R23.2 Flushing; L68.0 Hirsutism
CPT/HCPCS: 36415; 82166; 82627; 83001; 84144; 84146; 84270; 84402; 84403; 84443; 84702